=== PATIENT | female | born 1985 | race Caucasian/White ===

== ENCOUNTER 2020-05-21 16:48 | Emergency (ER) | payer OTHER, SELFPAY ==
--- NOTE | ~2020-05-21 | US_ITS ---
EXAMINATION: ABDOMINAL ULTRASOUND LIMITED CLINICAL INFORMATION: Right upper quadrant pain. COMPARISON: None. TECHNIQUE: Real-time imaging of the right upper quadrant abdominal viscera. FINDINGS: PANCREAS: The visualized pancreatic head and body are normal in appearance. The remainder of the pancreas is obscured from visualization by the overlying bowel gas. LIVER: The liver is of normal size and echogenicity without focal lesions nor intrahepatic biliary ductal dilation. GALLBLADDER: Normal. The gallbladder is physiologically distended without evidence of stones, sludge, polyps, wall thickening or pericholecystic fluid. COMMON BILE DUCT: Normal in caliber measuring 0.2 cm in diameter. RIGHT KIDNEY: Normal. No hydronephrosis. No renal calculi or focal parenchymal lesions. The kidney measures 12.1 cm in maximum dimension. FREE FLUID: None. US/US abdomen limited IMPRESSION: Unremarkable limited right upper quadrant abdominal ultrasound.
[2020-05-21 16:52] VITALS: BP 140/93; PULSE 102; RESP 16; TEMP 36.6; O2SAT 97; BMI 42.9
[2020-05-21 19:23] LABS: MANUAL DIFF FLAG NO
[2020-05-21 19:26] LABS: Hemoglobin 13.2 g/dl (12.0-16.0); Imm Gran Abs Auto 0.02 X10*3/uL (0.00-0.03); Imm Gran Pct Auto 0.3 % (0.0-0.4); Lymphocytes Absolute Auto 1.4 X10*3/uL (1.2-4.9); Mean Corpuscular HGB Conc 33.8 g/dl (31.0-35.0); Mean Corpuscular Hemoglobin 29.3 pg (27.0-33.0); Mean Corpuscular Volume 86.7 fL (80-98); Mean Platelet Volume 10.2 fL (9.4-12.3); Monocytes Absolute Auto 0.4 X10*3/uL (0.1-1.2); Neutrophils Absolute Auto 5.5 X10*3/uL (2.0-8.3); Neutrophils Percent Auto 74.7 % (45-73); Platelet Count 274 X10*3/uL (160-400); Red Cell Distribution Width 11.9 % (11.0-16.0); White Blood Count 7.4 X10*3/uL (4.8-10.8)
[2020-05-21 19:57] LABS: Alanine Aminotransferase 24 U/L (0-31); Alkaline Phosphatase 56 U/L (39-117); Anion Gap 16 (12-20); Aspartate Amino Transferase 20 U/L (5-31); Bilirubin Direct 0.2 mg/dL (0.0-0.5); Bilirubin Total 0.5 mg/dL (0.0-1.0); Blood Urea Nitrogen 14 mg/dL (9-16); Calcium 9.3 mg/dL (8.4-10.2); Carbon Dioxide 23 mmol/L (22-29); Chloride 102 mmol/L (96-108); Creatinine Clr Calc Pharmacy 124.2; Estimated Glomerular Filt Rate > 60; Glucose Random 85 mg/dL (60-115); Lipase 31 U/L (8-78); Potassium 3.7 mmol/L (3.3-5.1); Sodium 137 mmol/L (135-145); Total Protein 6.9 g/dL (6.5-8.0)
[2020-05-21 20:27] LABS: Appearance Urine HAZY; Color Urine YELLOW; Glucose Urine UA NEG (NEG); Leukocyte Esterase Urine NEG (NEG); Nitrite Urine NEG (NEG); Specific Gravity - Urine >= 1.030 (1.005-1.025); Urine Blood NEG (NEG); Urine Ketones 40 MG/DL (NEG); Urine Protein NEG (NEG-TRACE)
[2020-05-21 21:39] LABS: UPreg QC Valid YES; Urine Pregnancy NEGATIVE (NEGATIVE)
[2020-05-21 21:54] VITALS: BP 110/76; PULSE 76; RESP 18; TEMP 36.6; O2SAT 98
--- NOTE | 2020-05-21 22:07 | PC.NURSE ---
NAD. C/O RUQ PAIN, SHARP AT TIMES. NOW DULL BUT CONSISTENT. SLIGHT PALPITATIONS WHILE IN WR. SKIN PWD. UNLABORED RESP. MOIST MM. ABD NON TENDER.
--- NOTE | 2020-05-21 22:57 | ED_ITS ---
HPI - Abdominal Pain General Chief Complaint: General Medical Stated Complaint: Abdominal pain Time Seen by Provider: 05/21/20 22:22 Source: patient Mode of arrival: ambulatory History of Present Illness HPI narrative: This is a 34-year-old female who presents with 1 day of right upper quadrant, crampy, nonradiating pain that has been associated with nausea but denies any vomiting, fevers, chills, diarrhea. She is currently undergoing treatment for UTI but denies any current symptoms. Related Data Allergies Allergy/AdvReac Type Severity Reaction Status Date / Time Penicillins [PCN] Allergy Unknown RASH Unverified 11/10/19 17:05 Review of Systems Review of Systems Pertinent positives and negatives this per the HPI and 10 point review of systems is otherwise negative. Physical Exam Vital Signs: Vital Signs: Last Vital Signs Temp 99.0 F 05/22/20 01:20 Pulse 71 05/22/20 01:20 Resp 17 05/22/20 01:20 BP 108/60 05/22/20 01:20 Pulse Ox 99 05/22/20 01:20 Body Mass Index 42.9 VITAL SIGNS: Reviewed. GENERAL: Well developed, well nourished, in no acute distress. HEAD: Normocephalic/atraumatic NOSE: Nares patent bilateral OROPHARYNX: no oral lesions noted, posterior pharynx clear NECK: Supple, no adenopathy LUNGS: Normal breath sounds. No adventitious sounds or accessory muscle use. SpO2<98> CARDIOVASCULAR: Regular rate and rhythm without noted murmurs ABDOMEN: Soft, right upper quadrant pain, Agosto's positive, non-distended with bowel sounds. NEUROLOGIC: Alert and oriented x 4. Course Course Course Narrative: This is a 34-year-old female with history and clinical presentation and on review of all investigations of possible cholecystitis. UTI it looks to be well controlled and low clinical suspicion for pyelonephritis/renal colic. Review of all investigations is negative for any acute findings. Discussed with the patient at bedside and she was encouraged to follow up with her primary care provider for re-evaluation. MDM - Abdominal Pain Lab Data Result diagrams: 05/21/20 19:16 05/21/20 19:16 Labs: Lab Results 05/21/20 05/21/20 05/21/20 Range/Units 19:16 19:16 19:16 WBC 7.4 (4.8-10.8) X10*3/uL RBC 4.50 (4.20-5.50) X10*6/uL Hgb 13.2 (12.0-16.0) g/dl Hct 39.0 (37-47) % MCV 86.7 (80-98) fL MCH 29.3 (27.0-33.0) pg MCHC 33.8 (31.0-35.0) g/dl RDW 11.9 (11.0-16.0) % Plt Count 274 (160-400) X10*3/uL MPV 10.2 (9.4-12.3) fL Immature Gran % (Auto) 0.3 (0.0-0.4) % Neut % (Auto) 74.7 H (45-73) % Lymph % (Auto) 19.0 L (20-40) % Benson % (Auto) 6.0 (2-11) % Eos % (Auto) 0.0 (0-4) % Baso % (Auto) 0.0 (0-2) % Lymph # (Auto) 1.4 (1.2-4.9) X10*3/uL Benson # (Auto) 0.4 (0.1-1.2) X10*3/uL Eos # (Auto) 0.0 (0.0-0.4) X10*3/uL Baso # (Auto) 0.0 (0.0-0.2) X10*3/uL Abs Immat Gran (auto) 0.02 (0.00-0.03) X10*3/uL Absolute Neuts (auto) 5.5 (2.0-8.3) X10*3/uL Absolute Nucleated RBC 0.000 (0.0-0.012) X10*3/uL Nucleated RBC % (auto) 0.0 (0.0-0.2) /100WBC Hold Blue Top SEE NOTE Sodium 137 (135-145) mmol/L Potassium 3.7 (3.3-5.1) mmol/L Chloride 102 (96-108) mmol/L Carbon Dioxide 23 (22-29) mmol/L Anion Gap 16 (12-20) BUN 14 (9-16) mg/dL Creatinine 0.78 (0.5-1.4) mg/dL Estim Creat Clear Calc 124.2 Estimated GFR > 60 Random Glucose 85 (60-115) mg/dL Calcium 9.3 (8.4-10.2) mg/dL Total Bilirubin 0.5 (0.0-1.0) mg/dL Direct Bilirubin 0.2 (0.0-0.5) mg/dL AST 20 (5-31) U/L ALT 24 (0-31) U/L Alkaline Phosphatase 56 (39-117) U/L Total Protein 6.9 (6.5-8.0) g/dL Albumin 4.0 (3.5-5.0) g/dL Lipase 31 (8-78) U/L Urine Color Urine Appearance Urine pH (5.0-8.0) Ur Specific [place] (1.005-1.025) Urine Protein (NEG-TRACE) MG/DL Urine Glucose (UA) (NEG) MG/DL Urine Ketones (NEG) MG/DL Urine Blood (NEG) Urine Nitrite (NEG) Ur Leukocyte Esterase (NEG) Urine Test (NEGATIVE) 05/21/20 05/21/20 Range/Units 19:30 19:30 WBC (4.8-10.8) X10*3/uL RBC (4.20-5.50) X10*6/uL Hgb (12.0-16.0) g/dl Hct (37-47) % MCV (80-98) fL MCH (27.0-33.0) pg MCHC (31.0-35.0) g/dl RDW (11.0-16.0) % Plt Count (160-400) X10*3/uL MPV (9.4-12.3) fL Immature Gran % (Auto) (0.0-0.4) % Neut % (Auto) (45-73) % Lymph % (Auto) (20-40) % Benson % (Auto) (2-11) % Eos % (Auto) (0-4) % Baso % (Auto) (0-2) % Lymph # (Auto) (1.2-4.9) X10*3/uL Benson # (Auto) (0.1-1.2) X10*3/uL Eos # (Auto) (0.0-0.4) X10*3/uL Baso # (Auto) (0.0-0.2) X10*3/uL Abs Immat Gran (auto) (0.00-0.03) X10*3/uL Absolute Neuts (auto) (2.0-8.3) X10*3/uL Absolute Nucleated RBC (0.0-0.012) X10*3/uL Nucleated RBC % (auto) (0.0-0.2) /100WBC Hold Blue Top Sodium (135-145) mmol/L Potassium (3.3-5.1) mmol/L Chloride (96-108) mmol/L Carbon Dioxide (22-29) mmol/L Anion Gap (12-20) BUN (9-16) mg/dL Creatinine (0.5-1.4) mg/dL Estim Creat Clear Calc Estimated GFR Random Glucose (60-115) mg/dL Calcium (8.4-10.2) mg/dL Total Bilirubin (0.0-1.0) mg/dL Direct Bilirubin (0.0-0.5) mg/dL AST (5-31) U/L ALT (0-31) U/L Alkaline Phosphatase (39-117) U/L Total Protein (6.5-8.0) g/dL Albumin (3.5-5.0) g/dL Lipase (8-78) U/L Urine Color YELLOW Urine Appearance HAZY Urine pH 6.0 (5.0-8.0) Ur Specific [place] >= 1.030 H (1.005-1.025) Urine Protein NEG (NEG-TRACE) MG/DL Urine Glucose (UA) NEG (NEG) MG/DL Urine Ketones 40 (NEG) MG/DL Urine Blood NEG (NEG) Urine Nitrite NEG (NEG) Ur Leukocyte Esterase NEG (NEG) Urine Test NEGATIVE (NEGATIVE) Discharge Plan Discharge Clinical Impression: Abdominal discomfort in right upper quadrant Patient Disposition: Home, Self-Care Instructions: Abdominal Pain (ED) Additional Instructions: Resume all home medications as prescribed. Follow-up with your primary care provider in 2-3 days for re-evaluation. Do not hesitate to return to the emergency department for any acute worsening of symptoms. Referrals: Martha Khan MD [Primary Care Provider] - 2 days (Re-evaluation for right upper quadrant discomfort, negative workup in the emergency department.) [facility] Past Medical History Source: nursing notes reviewed Medical History ADHD Anxiety Asthma Social History Social History Alcohol intake: never Smoking Status: Never smoker Use of substances other than those prescribed or required for medical reasons: No Advance Directives: No
[2020-05-22 01:20] VITALS: BP 108/60; PULSE 71; RESP 17; TEMP 37.2; O2SAT 99
== END 2020-05-22 02:29 | disposition home or self-care (01) ==
PROVIDERS: Emergency Provider Student in an Organized Health Care Education/Training Program; PCP Internal Medicine
DX: R10.11 Right upper quadrant pain (principal)
CPT/HCPCS: 36415; 76705; 80053; 80076; 81003; 81025; 83690; 85025; 99284